=== PATIENT | male | born 1960 | race Hispanic/Latino ===

== ENCOUNTER 2018-02-14 16:50 | Emergency (ER) | payer MEDICAID, OTHER ==
[2018-02-14 16:51] VITALS: BMI 23.0
[2018-02-14 17:26] VITALS: RESP 18; TEMP 98.1
[2018-02-14 17:50] VITALS: BP 112/80; PULSE 60; O2SAT 98
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
== END 2018-02-14 17:51 | disposition home or self-care (01) ==
LOC: ED 16:50
DX: Z76.0 Encounter for issue of repeat prescription (principal); I10 Essential (primary) hypertension; F17.210 Nicotine dependence, cigarettes, uncomplicated